=== PATIENT | female | born 1980 | race Two or more races ===

== ENCOUNTER 2018-11-30 18:28 | Emergency (ER) | payer MEDICAID, OTHER, SELFPAY ==
[~2018-11-30] VITALS: Ht 152.4 cm; Wt 72.2 kg
--- NOTE | 2018-11-30 19:00 | NUR ---
"I'M REALLY NAUSEOUS. MY STOMACH HURTS REALLY BAD. MID EPIGASTRIC ABD PAIN RADIATING TO ABD. DIARRHEA". SX STARTED LAST NOC. NO EMESIS. DIARRHEA 10 OR MORE TIMES. Just finished 10 day course of augmentin for a sinus infection. Denies fevers, hr 80
[2018-11-30] MEDS ORDERED: ONDANSETRON ODT 4 MG ONE ×2 (19:11→22:32)
[2018-11-30] MEDS ORDERED: ONDANSETRON ODT 4 MG PO ONE (19:30)
[2018-11-30 19:36] LABS: BASOPHILS # (AUTO) 0.13 x10^3/uL (0-0.1); BASOPHILS % (AUTO) 1 % (0-1); EOSINOPHILS # (AUTO) 0.06 x10^3/uL (0-0.4); EOSINOPHILS % (AUTO) 0 % (1-7); LYMPHOCYTES # (AUTO) 3.32 x10^3/uL (1-3.4); LYMPHOCYTES % (AUTO) 20 % (22-44); MD NO; MEAN CORPUSCULAR HEMOGLOBIN 30.3 pg (27.0-34.8); MEAN CORPUSCULAR HGB CONC 34.6 g/dL (32.4-35.8); MEAN CORPUSCULAR VOLUME 87.6 fL (80-100); MEAN PLATELET VOLUME 8.3 fL (7.4-10.4); MONOCYTES % (AUTO) 5 % (2-9); NEUTROPHILS # (AUTO) 12.23 x10^3/uL (1.8-6.8); NEUTROPHILS % (AUTO) 74 % (42-75); PLATELET COUNT 298 x10^3/uL (130-400); RED BLOOD COUNT 4.94 x10^6/uL (3.82-5.3); RED CELL DISTRIBUTION WIDTH 13.5 % (9.6-15.2)
--- NOTE | 2018-11-30 19:42 | NUR ---
Patient unable to provide stool sample as she feels like she "is empty" provider made aware
[2018-11-30 19:43] LABS: ALANINE AMINOTRANSFERASE 49 U/L (12-78); ALBUMIN 3.4 g/dL (3.4-5.0); ANION GAP 5 mmol/L (5-15); CALCIUM 8.1 mg/dL (8.5-10.1); CHLORIDE 109 mmol/L (98-107); CREATININE 0.65 mg/dL (0.55-1.02)
[2018-11-30 19:48] LABS: ALKALINE PHOSPHATASE 66 U/L (45-117); BILIRUBIN,TOTAL 0.4 mg/dL (0.2-1.0); TOTAL PROTEIN 7.2 g/dL (6.4-8.2)
[2018-11-30] MEDS ORDERED: KETOROLAC 30 MG/1 ML ONE (20:10)
[2018-11-30] MEDS ORDERED: KETOROLAC 30 MG/1 ML IM ONE (20:30)
[2018-11-30 21:44] LABS: OCCULT BLOOD POSITIVE (NEGATIVE)
--- NOTE | 2018-11-30 22:09 | NUR ---
Bedside SBAR report received from RNIsaac. Pt resting on family albin at bedside. Pt remains on monitors. VSS.
[2018-11-30 22:12] LABS: CLOSTRIDIUM DIFFICILE ANTIGEN NEGATIVE; CLOSTRIDIUM DIFFICILE TOXIN NEGATIVE (Negative)
--- NOTE | 2018-11-30 22:23 | NUR ---
Dr. Camejo at bedside to discuss ED findings and POC.
[2018-11-30] MEDS ORDERED: HYDROcodone/APAP 5/325 TABLET PO ONE (22:30)
[2018-11-30] MEDS ORDERED: HYDROcodone/APAP 5/325 TABLET ONE (22:33)
[2018-11-30 22:38] VITALS: BP 134/87
--- NOTE | 2018-11-30 22:39 | NUR ---
Pt medicated per MAR, pt aware of plan to be discharged.
--- NOTE | 2018-11-30 22:53 | NUR ---
Patient/Caregiver given discharge instructions and they have confirmed that they understand the instructions. Patient ambulatory with steady gait.
== END 2018-11-30 22:55 | disposition home or self-care (01) ==
LOC: ED 22:05
DX: K52.1 Toxic gastroenteritis and colitis (principal); T36.95XA Adverse effect of unspecified systemic antibiotic, initial encounter; K52.9 Noninfective gastroenteritis and colitis, unspecified; R10.84 Generalized abdominal pain; Y92.89 Other specified places as the place of occurrence of the external cause; Z90.49 Acquired absence of other specified parts of digestive tract
CPT/HCPCS: 36415; 80053; 82272; 83690; 84703; 85025; 87324; 96372; 99283; J1885; Q0162

== ENCOUNTER 2020-07-04 16:46 | Emergency (ER) | payer OTHER ==
[~2020-07-04] VITALS: Ht 152.4 cm; Wt 77.9 kg
[2020-07-04 16:48] VITALS: BP 117/100
--- NOTE | 2020-07-04 17:17 | NUR ---
AT BEDSIDE FOR EVAL.
== END 2020-07-04 18:47 | disposition home or self-care (01) ==
LOC: ED 18:00
DX: R50.9 Fever, unspecified (principal); M79.10 Myalgia, unspecified site; J01.00 Acute maxillary sinusitis, unspecified; R00.0 Tachycardia, unspecified; J00 Acute nasopharyngitis [common cold]; R07.89 Other chest pain
CPT/HCPCS: 71045; 99283